=== PATIENT | male | born 1965 | race Caucasian/White ===

== ENCOUNTER 2017-03-19 09:33 | Emergency (ER) | payer OTHER ==
[2017-03-19] MEDS ORDERED: Ibuprofen TAB* 800 MG PO ONE (12:24)
--- NOTE | 2017-03-19 13:56 | RAD ---
INDICATION: Right-sided testicular pain for one month. Mass right hemiscrotum.. History of antibiotic therapy. COMPARISON: None TECHNIQUE: Duplex interrogation of the scrotum was performed. FINDINGS: Testicles: The testicles are Normal in size and echogenicity. There is no evidence of testicular mass. There is symmetric flow on Doppler interrogation. There is no evidence of torsion.. The right testis measures 3.3 x 2.4 x 2.9 cm and the left 3.4 x 2.1 x 2.8 cm. There is symmetric flow on Doppler interrogation. Epididymides: There is are small right-sided epididymal cysts measuring 0.5, and 0.3 cm. The right abnormal head appears mildly enlarged measuring 1.3 x 1.2 cm. The left abdomen normal head measures 1.0 x 0.7 cm. There is symmetric flow on Doppler interrogation. Hydroceles: Normal bilateral hydroceles. Varicoceles: None. Other: There is a complex, extratesticular, avascular mass with both cystic and solid positioned within the right hemiscrotum. The mass measures 4.9 x 3.5 x 4.3 cm. It is difficult to determine the relationship between this mass, the epididymis, and the scrotal wall. An infectious etiology and/or a hematoma is considered statistically most likely. Urologic referral is recommended. IMPRESSION: 1. No evidence of testicular mass or torsion. 2. Complex extratesticular mass right hemithorax. A scrotal abscess is not excluded. Suggest urologic referral.
--- NOTE | 2017-03-19 13:56 | ED ---
GI/ HPI - HPI Summary HPI Summary: Pt here w/ Rt testicular redness, swelling and pain x months. Started as small area and saw PCP who rx'd doxycycline. Seemed to improve some but followed through with dermatology consult anyway - they advised additional tx w/ doxycycline but didn't rx and pt has not been able to reach PCP for a few weeks now despite placing calls. He is here today as area has become larger and more tender/painful. BEtter w/ rest - worse w/ movement. Tried "popping" but no success. Denies fever, chills, N/V/D, dysuria, flank pain. H/o hidradenitis suppurativa. No h/o testicular issues in personal hx or family. - History of Current Complaint Chief Complaint: EDUrogenitalProblems Time Seen by Provider: 03/19/17 11:07 Stated Complaint: POSS INFECTION ON GROIN Hx Obtained From: Patient Pain Intensity: 10 - Allergy/Home Medications Allergies/Adverse Reactions: Allergies Allergy/AdvReac Type Severity Reaction Status Date / Time No Known Allergies Allergy Verified 06/09/16 08:09 PMH/Surg Hx/FS Hx/Imm Hx Previously Healthy: Yes Endocrine/Hematology History: Reports: Other Endocrine/Hematological Disorders - hidradenitis suppurativa (inflammatory skin condition) Denies: Hx Anticoagulant Therapy, Hx Blood Disorders, Hx Diabetes, Hx Thyroid Disease, Autoimmune Disease Cardiovascular History: Reports: Hx Hypertension - MEDS Denies: Hx Pacemaker/ICD, Other Cardiovascular Problems/Disorders Respiratory History: Reports: Hx Asthma Denies: Hx Chronic Obstructive Pulmonary Disease (COPD) GI History: Denies: Hx Ulcer History: Denies: Hx Renal Disease Musculoskeletal History: Reports: Hx Arthritis, Hx Back Problems, Hx Gout, Other Musculoskeletal History - sciatica Sensory History: Denies: Hx Hearing Aid Psychiatric History: Reports: Hx Substance Abuse - currently goes to methadone clinic Denies: Hx Panic Disorder Infectious Disease History: No Infectious Disease History: Reports: Hx Hepatitis Denies: Hx Human Immunodeficiency Virus (HIV), History Other Infectious Disease, Traveled Outside the [place] in Last 30 Days - Family History Known Family History: Positive: Hypertension - Social History Occupation: Employed Part-time - automotive quality manager Lives: With Family Alcohol Use: None Alcohol Amount: none since Jul 2013 Hx Substance Use: Yes Substance Use Comment - Amount & Last Used: none since Jul 2013, GOES TO [facility] Hx Tobacco Use: Yes Smoking Status (MU): Current Every Day Smoker Type: Cigarettes Amount Used/How Often: PACK A DAY Review of Systems Constitutional: Negative Negative: Fever, Chills Cardiovascular: Negative Negative: Chest Pain Respiratory: Negative Negative: Shortness Of Breath Gastrointestinal: Negative Positive: see HPI Musculoskeletal: Negative Skin: Other - see HPI Neurological: Negative Psychological: Normal All Other Systems Reviewed And Are Negative: Yes Physical Exam Triage Information Reviewed: Yes Vital Signs On Initial Exam: Initial Vitals Temp Pulse Resp BP Pulse Ox 98.6 F 71 12 153/72 94 03/19/17 09:36 03/19/17 09:36 10 09:36 03/19/17 09:36 03/19/17 09:36 Vital Signs Reviewed: Yes Appearance: Positive: Well-Appearing, No Pain Distress, Obese Skin: Positive: Warm, Dry - Skin along Rt testicle is edematous, erythematous w / ecchymotic tracking and intermittent pores - no drainage - this area measures 4cm long x 2.5 cm across - boggy; appears to have mild induration tracking superiorly along lateral scrotum - testicles are smooth and w/o masses; penile shaft appears healthy; old areas of cryptic/pourous/hyperpigmented skin over Lt groin (appears to be remnants of previous hidradenitis suppurativa flair) Head/Face: Positive: Normal Head/Face Inspection Eyes: Positive: EOMI ENT: Positive: Hearing grossly normal Respiratory/Lung Sounds: Positive: Breath Sounds Present Cardiovascular: Positive: Pulses are Symmetrical in both Upper and Lower Extremities. Negative: Leg Edema Left, Leg Edema Right Abdomen Description: Positive: Nontender, No Organomegaly, Soft Male Genital Exam: Positive: other - see above Musculoskeletal: Positive: Normal, Strength/ROM Intact Neurological: Positive: Normal, Sensory/Motor Intact, Alert, Oriented to Person Place, Time, CN Intact II-III Psychiatric: Positive: Normal - Osgood Coma Scale Coma Scale Total: 15 Diagnostics - Vital Signs Vital Signs Temp Pulse Resp BP Pulse Ox 03/19/17 09:36 98.6 F 71 12 153/72 94 - Laboratory Lab Statement: Any lab studies that have been ordered have been reviewed, and results considered in the medical decision making process. GIGU Course/Dx - Diagnoses Provider Diagnoses: Scrotal mass - Physician Notifications Discussed Care Of Patient With: Chris Liriano Discharge - Discharge Plan Condition: Stable Disposition: HOME Prescriptions: DOXYcycline CAP(*) [DOXYcycline 100MG CAP(*)] 100 mg PO BID #23 cap Patient Education Materials: Scrotal Pain (ED), Hidradenitis Suppurativa (ED) Referrals: Zeke Adamson MD [Medical Doctor] - Additional Instructions: You appear to have inflammation along right scrotal tissue which could be filled with blood or pus. This may be a result of poorly controlled hidradentitis suppurtiva but other causes cannot be ruled out. It is important that you take antibiotics as directed and follow-up with urologist this week - call today to schedule an appointment. In the meantime, rest, take ibuprofen with food for pain, swelling *If you develop fever, chills, worsening of pain, change in urination, return to ED
[2017-03-19] MEDS ORDERED: DOXYcycline CAP(*) 100 MG PO ONE (14:03)
[2017-03-19 14:20] VITALS: BP 151/72
== END 2017-03-19 14:19 | disposition home or self-care (01) ==
LOC: ED 09:33
DX: N50.9 Disorder of male genital organs, unspecified (principal); Z87.891 Personal history of nicotine dependence
CPT/HCPCS: 76870; 99282; A9270-GY

== ENCOUNTER 2017-03-22 14:27 | Emergency (ER) | payer OTHER ==
[2017-03-22 14:34] VITALS: BP 131/42
--- NOTE | 2017-03-22 15:31 | UC ---
UC General HPI - History of Current Complaint Chief Complaint: EDGeneral Stated Complaint: EKG/LABS Time Seen by Provider: 03/22/17 15:10 Pain Intensity: 0 - Allergy/Home Medications Allergies/Adverse Reactions: Allergies Allergy/AdvReac Type Severity Reaction Status Date / Time No Known Allergies Allergy Verified 06/09/16 08:09 PMH/Surg Hx/FS Hx/Imm Hx Other History Of: Negative For: Anticoagulant Therapy - Surgical History Surgical History: None - Family History Known Family History: Positive: Hypertension - Social History Alcohol Use: None Alcohol Amount: none since Jul 2013 Substance Use Type: None Substance Use Comment - Amount & Last Used: none since Jul 2013, [facility] TO [facility] Smoking Status (MU): Current Every Day Smoker Type: Cigarettes Amount Used/How Often: PACK A DAY - Immunization History Most Recent Influenza Vaccination: unk Most Recent Tetanus Shot: unk Most Recent Pneumonia Vaccination: never Physical Exam Vital Signs: Initial Vital Signs Temp 97.7 F 03/22/17 14:29 Pulse 57 03/22/17 14:29 Resp 19 03/22/17 14:29 BP 131/42 03/22/17 14:29 Pulse Ox 96 03/22/17 14:29 Discharge - Discharge Plan Referrals: Tyson Jang MD [Primary Care Provider] -
--- NOTE | 2017-03-22 15:38 | ED ---
Complex/Multi-Sys Presentation - HPI Summary HPI Summary: Needs to have an EKG to meet the requirements of yearly evaluation for his Methadone program---patient has no c/o - History Of Current Complaint Chief Complaint: EDGeneral Time Seen by Provider: 03/22/17 15:10 Hx Obtained From: Patient Severity Currently: None - Allergies/Home Medications Allergies/Adverse Reactions: Allergies Allergy/AdvReac Type Severity Reaction Status Date / Time No Known Allergies Allergy Verified 06/09/16 08:09 PMH/Surg Hx/FS Hx/Imm Hx Endocrine/Hematology History: Reports: Other Endocrine/Hematological Disorders - hidradenitis suppurativa (inflammatory skin condition) Denies: Hx Anticoagulant Therapy, Hx Blood Disorders, Hx Diabetes, Hx Thyroid Disease Cardiovascular History: Reports: Hx Hypertension - MEDS Denies: Hx Pacemaker/ICD, Other Cardiovascular Problems/Disorders Respiratory History: Reports: Hx Asthma Denies: Hx Chronic Obstructive Pulmonary Disease (COPD) GI History: Denies: Hx Ulcer History: Denies: Hx Renal Disease Musculoskeletal History: Reports: Hx Arthritis, Hx Back Problems, Hx Gout, Other Musculoskeletal History - sciatica Sensory History: Denies: Hx Hearing Aid Psychiatric History: Reports: Hx Substance Abuse - currently goes to methadone clinic Denies: Hx Panic Disorder Infectious Disease History: Yes Infectious Disease History: Reports: Hx Hepatitis Denies: Hx Human Immunodeficiency Virus (HIV), History Other Infectious Disease, Traveled Outside the [place] in Last 30 Days - Family History Known Family History: Positive: Hypertension - Social History Occupation: Unemployed Lives: Dormitory/Roommates Alcohol Use: None Alcohol Amount: none since Jul 2013 Hx Substance Use: Yes Substance Use Type: Reports: None Substance Use Comment - Amount & Last Used: none since Jul 2013, GOES TO [facility] Hx Tobacco Use: Yes Smoking Status (MU): Current Every Day Smoker Type: Cigarettes Amount Used/How Often: PACK A DAY Review of Systems Constitutional: Negative Eyes: Negative ENT: Negative Cardiovascular: Negative Respiratory: Negative Gastrointestinal: Negative Genitourinary: Negative Musculoskeletal: Negative Skin: Negative Neurological: Negative Psychological: Normal All Other Systems Reviewed And Are Negative: Yes Physical Exam Triage Information Reviewed: Yes Vital Signs On Initial Exam: Initial Vitals Temp Pulse Resp BP Pulse Ox 97.7 F 57 19 131/42 96 03/22/17 14:29 03/22/17 14:29 03/22/17 14:29 03/22/17 14:29 03/22/17 14:29 Vital Signs Reviewed: Yes Appearance: Positive: Well-Appearing, No Pain Distress, Obese Skin: Positive: Warm, Skin Color Reflects Adequate Perfusion Head/Face: Positive: Normal Head/Face Inspection Eyes: Positive: Normal, Conjunctiva Clear ENT: Positive: Normal ENT inspection, Hearing grossly normal. Negative: Nasal congestion, Nasal drainage, Trismus, Muffled/hoarse voice Neck: Positive: Supple, Nontender Respiratory/Lung Sounds: Positive: Clear to Auscultation, Breath Sounds Present Cardiovascular: Positive: Normal, Bradycardia Neurological: Positive: Normal, Sensory/Motor Intact, Alert, Oriented to Person Place, Time Psychiatric: Positive: Normal AVPU Assessment: Alert - Carina Coma Scale Best Eye Response: 4 - Spontaneous Best Motor Response: 6 - Obeys Commands Best Verbal Response: 5 - Oriented Coma Scale Total: 15 Diagnostics - Vital Signs Vital Signs Temp Pulse Resp BP Pulse Ox 03/22/17 14:29 97.7 F 57 19 131/42 96 - Laboratory Lab Statement: Any lab studies that have been ordered have been reviewed, and results considered in the medical decision making process. - EKG No standard instances Cardiac Rate: Bradycardia EKG Rhythm: Sinus Rhythm ST Segment: Normal Ectopy: None EKG Comparison: No Significant Change Complex Multi-Symp Course/Dx Assessment/Plan: d/c to follow with Methadone clinic as planned - Diagnoses Provider Diagnoses: Long-term current use of methadone for opiate dependence Discharge - Discharge Plan Condition: Stable Disposition: HOME Patient Education Materials: Bradycardia (ED) Referrals: Tyson Jang MD [Primary Care Provider] - If Needed Additional Instructions: Follow with Methadone clinic as planned
== END 2017-03-22 15:43 | disposition home or self-care (01) ==
LOC: ED 14:27
DX: F11.20 Opioid dependence, uncomplicated (principal); Z79.891 Long term (current) use of opiate analgesic; L73.2 Hidradenitis suppurativa; I10 Essential (primary) hypertension; J45.909 Unspecified asthma, uncomplicated; E66.9 Obesity, unspecified; F17.210 Nicotine dependence, cigarettes, uncomplicated
CPT/HCPCS: 93005; 99281

== ENCOUNTER 2019-04-08 10:21 | Emergency (ER) | payer SELFPAY ==
[2019-04-08 10:33] VITALS: BP 192/110
--- NOTE | 2019-04-08 10:50 | UC ---
General HPI - HPI Summary HPI Summary: 53 yo gentleman c/o cough x 2 weeks. Started with fever / cough / st 2 weeks ago, improved. Ran out of blood pressure medication. - History of Current Complaint Chief Complaint: UCRespiratory Stated Complaint: chest CONGESTION Time Seen by Provider: 04/08/19 10:50 Hx Obtained From: Patient Pain Intensity: 5 - Allergy/Home Medications Allergies/Adverse Reactions: Allergies Allergy/AdvReac Type Severity Reaction Status Date / Time No Known Allergies Allergy Verified 04/08/19 10:33 Home Medications: Home Medications Methadone HCl 110 mg PO DAILY 04/08/19 [History Confirmed 04/08/19] PMH/Surg Hx/FS Hx/Imm Hx Other History Of: Negative For: Anticoagulant Therapy - Surgical History Surgical History: None - Family History Known Family History: Positive: Hypertension - Social History Alcohol Use: None Alcohol Amount: none since Jul 2013 Substance Use Type: None Substance Use Comment - Amount & Last Used: none since Jul 2013, GOES TO [facility] Smoking Status (MU): Current Every Day Smoker Type: Cigarettes Amount Used/How Often: PACK A DAY - Immunization History Most Recent Influenza Vaccination: unk Most Recent Tetanus Shot: unk Most Recent Pneumonia Vaccination: never Physical Exam Vital Signs: Initial Vital Signs Temp 98.2 F 04/08/19 10:27 Pulse 70 04/08/19 10:27 Resp 20 04/08/19 10:27 BP 192/110 04/08/19 10:27 Pulse Ox 96 04/08/19 10:27 Course/Dx - Course Course Of Treatment: BP 190/112 I called pt's pharmacy, he had earlier rx's for amlodipine 10mg po qd, refill sent in today. I strongly recommend that he f/u with pcp in the next couple weeks. Mr. Valadez assures that he will fill htn rx. Avoid decongestants. Feels better s/p duoneb. Reviewed cxr report with Mr. Valadez. Reviewed coa / tx plan. Questions as posed answered to the best of my ability. - Diagnoses Provider Diagnosis: High blood pressure, Bronchitis, Wheezing Discharge ED - Discharge Plan Condition: Improved Disposition: HOME Prescriptions: Albuterol 2.5MG/3ML (0.083%)* [Ventolin 2.5 MG/3 ML NEB.MARGARETH*] 2.5 mg INH Q6H # 25 unit Albuterol HFA INHALER* [Ventolin HFA Inhaler*] 1 - 2 puff INH Q6H PRN #1 mdi PRN Reason: Wheezing Amlodipine Besylate [Norvasc] 10 mg PO DAILY WITH MEAL #30 tablet Amoxicillin/Clavulanate TAB* [Augmentin TAB 875*] 875 mg PO BID #20 tab predniSONE TAB* [Deltasone 10 MG TAB*] 10 mg PO DAILY #20 tab Patient Education Materials: Acute Bronchitis (ED), Chronic Hypertension (ED), Bronchospasm (ED) Forms: *Work Release Referrals: Fuentes Villafana MD [Primary Care Provider] - Additional Instructions: Please follow up with your primary care physician in the next 2 weeks. Seek medical attention for worse or new problems in the meantime. Avoid decongestants (high blood pressure). Please take your blood pressure medication. Refeill has been sent to your pharmacy. -> Blood pressure today 190/112 - Billing Disposition and Condition Condition: IMPROVED Disposition: Home
[2019-04-08] MEDS ORDERED: Albuterol/Ipratropium NEB.SOL* Albuterol 2.5 MG/Ipratropium 0.5 MG 3 ML INH ONE (11:12)
== END 2019-04-08 12:30 | disposition home or self-care (01) ==
LOC: UCEAST 10:21
DX: J40 Bronchitis, not specified as acute or chronic (principal); R06.2 Wheezing; R03.0 Elevated blood-pressure reading, without diagnosis of hypertension; F17.210 Nicotine dependence, cigarettes, uncomplicated
CPT/HCPCS: 71046; 99202; A9270-GY; G0463